=== PATIENT | male | born 1960 | race Caucasian/White ===

== ENCOUNTER 2016-10-23 08:17 | Day surgery (SDC) | payer OTHER ==
[2016-10-23] VITALS (20 sets, daily range): BP systolic 107–131; BP diastolic 56–77; PULSE 16–65; RESP 15–27; Ht 193 cm; Wt 141.0 kg
[~2016-10-23] VITALS: Ht 193 cm; Wt 141.0 kg
[~2016-10-23 08:17] MED LIST: BENADRYL PO; OMEP20CA9 PO; PROP10TA6 PO
[2016-10-23] MEDS ORDERED: PROP20TA4 PO (09:21)
[2016-10-23] MEDS ORDERED: FLUO10TA PO (09:22)
[2016-10-23] MEDS ORDERED: PANT20TA2 PO (09:22)
[2016-10-23] MEDS ORDERED: BEN50 PO (09:24)
[2016-10-23] MEDS ORDERED: FURO20TA3 PO (09:25)
[2016-10-23] MEDS ORDERED: SPIR50TA PO (09:25)
[2016-10-23] MEDS ORDERED: SOD CHLORIDE 0.9% 1,000 ML IV SCH (09:30)
[2016-10-23] MEDS ORDERED: LIDOCAINE 1% (MDV) 20 ML INJ ONE (11:08)
[2016-10-23] MEDS ORDERED: FENTAnyl 50 MCG/ML VIAL ONE (11:25)
[2016-10-23] MEDS ORDERED: MIDAZOLAM 1 MG/ML 2 ML INJ ONE (11:25)
--- NOTE | 2016-10-23 12:21 | RADRPT ---
PROCEDURE: CT guided bone marrow aspiration and left iliac bone biopsy. CLINICAL INDICATION: History of pancytopenia. TECHNIQUE: Informed consent was obtained. The procedure, risks, benefits, complications and alternatives were e xplained to the patient. Risks including bleeding and infection were explained. The patient understo od and was willing to proceed. A procedural pause was performed. The patient's name, date of , and procedure to be performed were verified. One or more of the following dose reduction techni ques were used: Automated exposure control, adjustment of the mA and/or kV according to patient size , use of iterative reconstruction technique. Using local anesthetic, sterile technique and CT guidance, an 11-gauge On Control bone biopsy needle was advanced into the left iliac bone via a posterior approach. Bone marrow aspiration was perform ed yielding approximately 10 ml. The bone biopsy needle was then advanced an additional 4 cm using the power drill device and tissue was obtained. Adequate tissue was obtained according to the patho logist present during the procedure. The needle was removed. A postprocedural scan was performed. A dressing was applied. The patient tolerated procedure well. COMPARISON: None. FINDINGS: Initial images demonstrate the tip of the needle at the posterior margin of the left iliac bone. Ramey bsequent images demonstrate the needle within the bone. Post biopsy images demonstrate no immediate complication. IMPRESSION: 1. Successful CT guided bone marrow aspiration and biopsy. RPTAT: QQ .Zach Silver MD, Date Time Electronically viewed and signed by .Zach Silver MD, on 10/23/2016 12:21 .R/
== END 2016-10-23 14:30 | disposition home or self-care (01) ==
LOC: SDS 08:17
PROVIDERS: ATTEND Internal Medicine Hematology & Oncology
DX: D61.818 Other pancytopenia (principal); J44.9 Chronic obstructive pulmonary disease, unspecified; F17.200 Nicotine dependence, unspecified, uncomplicated
CPT/HCPCS: 38221; 77012; 88305; 88313; J2250; J3010; Z7610

== ENCOUNTER 2018-11-28 22:49 | Inpatient (IN) | payer OTHER ==
[~2018-11-28] VITALS: Ht 193 cm; Wt 135.6 kg
[~2018-11-28 22:49] MED LIST changes: +BEN50 PO; -BENADRYL PO; +FLUO10TA PO; +FURO20TA3 PO; +FURO40TA4 PO; -OMEP20CA9 PO; +PANT20TA2 PO; +PANT40TA3 PO; -PROP10TA6 PO; +PROP20TA4 PO; +RIFA550T4 PO; +SPIR25TA PO; +SPIR50TA PO
[2018-11-28] MEDS ORDERED: SOD CHLORIDE 0.9% 500 ML IV STA (23:15)
[2018-11-29] MEDS ORDERED: KETOROLAC 15 MG INJ IV STA (00:18)
[2018-11-29] MEDS ORDERED: LACTULOSE 30ML CUP PO ONE (00:30)
[2018-11-29] MEDS ORDERED: FUROSEMIDE 40 MG INJ IV ONE (01:30)
[2018-11-29] MEDS ORDERED: DOCUSATE SODIUM 100 MG CAP PO PRN (01:30)
[2018-11-29] MEDS ORDERED: BISACODYL (EC) 5 MG TAB PO PRN (01:30)
[2018-11-29] MEDS ORDERED: HYDROmorphONE 0.5 MG/0.5 ML SYG IV PRN (01:30)
[2018-11-29] MEDS ORDERED: NACL 0.9% 3 ML SYG IV SCH (01:30)
[2018-11-29] MEDS ORDERED: ONDANSETRON 4 MG INJ IV PRN (01:30)
[2018-11-29] MEDS ORDERED: ACETAMINOPHEN 325 MG TAB PO PRN (01:30)
[2018-11-29] MEDS ORDERED: HYDROmorphONE 0.5 MG/0.5 ML SYG IV STA (01:45)
[2018-11-29 02:25] VITALS: Ht 193 cm; Wt 135.6 kg
[2018-11-29 03:06] VITALS: BP 127/63; PULSE 50; RESP 20
[2018-11-29 03:30] VITALS: PULSE 55
[2018-11-29] MEDS ORDERED: FUROSEMIDE 40 MG INJ IV SCH (06:00)
[2018-11-29] MEDS: PANTOPRAZOLE SODIUM 20 MG TABEC PO SCH ×2 (06:01→18:58)
[2018-11-29] MEDS ORDERED: IOHEXOL 14.3 MG(I)/ML (ADULT) BTL PO ONE ×2 (08:00→14:00)
[2018-11-29 08:48] VITALS: BP 110/55; PULSE 51; RESP 18
[2018-11-29] MEDS: FLUOXETINE 10 MG CAP PO SCH (08:52)
[2018-11-29] MEDS ORDERED: PROPRANOLOL 10 MG TAB PO SCH ×2 (09:00→21:00)
[2018-11-29] MEDS ORDERED: SPIRONOLACTONE 50 MG TAB PO SCH (09:00)
[2018-11-29] MEDS ORDERED: PROPRANOLOL 20 MG TAB PO SCH (09:00)
[2018-11-29] MEDS ORDERED: MAGNESIUM SULFATE 3 GM in DEXTROSE 5% 100 ML IVPB ONE (12:00)
[2018-11-29 14:00] VITALS: BP 142/69; PULSE 53; RESP 18
[2018-11-29] MEDS ORDERED: LACTULOSE 30ML CUP PO PRN (14:00)
[2018-11-29] MEDS ORDERED: morphine 2 MG INJ IV STA (18:50)
[2018-11-29 20:00] VITALS: BP 120/56; PULSE 59; RESP 19
[2018-11-29] MEDS: SPIRONOLACTONE 50 MG TAB PO SCH (20:54)
[2018-11-29] MEDS: RIFAXIMIN 550 MG TAB PO SCH (20:55)
[2018-11-30 02:00] VITALS: BP 116/57; PULSE 55; RESP 19
[2018-11-30] MEDS: PANTOPRAZOLE SODIUM 20 MG TABEC PO SCH ×2 (06:00→17:03)
[2018-11-30 08:09] VITALS: BP 108/54; PULSE 53; RESP 20
[2018-11-30] MEDS ORDERED: FUROSEMIDE 20 MG TAB PO SCH (09:00)
[2018-11-30] MEDS: FUROSEMIDE 40 MG INJ IV SCH (09:07)
[2018-11-30] MEDS: FLUOXETINE 10 MG CAP PO SCH (09:07)
[2018-11-30] MEDS: RIFAXIMIN 550 MG TAB PO SCH ×2 (09:07→20:45)
[2018-11-30] MEDS: SPIRONOLACTONE 50 MG TAB PO SCH ×2 (09:08→20:45)
[2018-11-30] MEDS: HYDROCODONE/APAP (5/325) TAB PO PRN ×2 (09:14→16:54)
[2018-11-30 12:39] VITALS: BP 131/62; PULSE 47; RESP 21
[2018-11-30] MEDS ORDERED: PROPOFOL 20 ML ONE ×2 (13:10→13:43)
[2018-11-30 14:20] VITALS: BP 129/65; PULSE 50; RESP 17
[2018-11-30] MEDS ORDERED: IOHEXOL 300MG/ML 150 ML BTL ONE (16:26)
[2018-11-30] MEDS ORDERED: SOD CHLORIDE 0.9% 100 ML ONE (16:26)
[2018-11-30] MEDS: DEXTROSE 5%-0.45% NACL 1,000 ML IV SCH (16:52)
[2018-11-30 20:12] VITALS: BP 117/56; PULSE 48; RESP 20
[2018-12-01] MEDS: HYDROCODONE/APAP (5/325) TAB PO PRN ×2 (02:47→09:30)
[2018-12-01 02:49] VITALS: BP 102/54; PULSE 53; RESP 20
[2018-12-01] MEDS: PANTOPRAZOLE SODIUM 20 MG TABEC PO SCH ×2 (05:38→17:35)
[2018-12-01] MEDS: DEXTROSE 5%-0.45% NACL 1,000 ML IV SCH (05:39)
[2018-12-01 08:00] VITALS: BP 126/60; PULSE 53; RESP 16
[2018-12-01] MEDS: SPIRONOLACTONE 50 MG TAB PO SCH (08:33)
[2018-12-01] MEDS: RIFAXIMIN 550 MG TAB PO SCH (08:34)
[2018-12-01] MEDS: FUROSEMIDE 40 MG INJ IV SCH (08:34)
[2018-12-01] MEDS: FLUOXETINE 10 MG CAP PO SCH (08:34)
[2018-12-01 14:00] VITALS: BP 122/63; PULSE 55; RESP 16
== END 2018-12-01 19:00 | disposition home or self-care (01) | DRG 809 ==
LOC: E/R 22:49 → PP2 11-29 00:51 → EDBEDREQ 11-29 01:21 → EDBEDREQSVC 11-29 01:21 → PP2 11-29 02:19
PROVIDERS: ADMIT Family Medicine; ATTEND Family Medicine
PROC: 30233R1 Transfusion of Nonautologous Platelets into Peripheral Vein, Percutaneous Approach (ICD-10-PCS; 2018-11-29)
PROC: 06L38CZ Occlusion of Esophageal Vein with Extraluminal Device, Via Natural or Artificial Opening Endoscopic (ICD-10-PCS; 2018-11-30)
PROC: 0DB68ZX Excision of Stomach, Via Natural or Artificial Opening Endoscopic, Diagnostic (ICD-10-PCS; principal; 2018-11-30 13:00)
DX: D61.818 Other pancytopenia (principal); I85.10 Secondary esophageal varices without bleeding; D69.59 Other secondary thrombocytopenia; K70.30 Alcoholic cirrhosis of liver without ascites; F10.10 Alcohol abuse, uncomplicated; Y90.0 Blood alcohol level of less than 20 mg/100 ml; B18.2 Chronic viral hepatitis C; R00.1 Bradycardia, unspecified; D73.1 Hypersplenism; F17.200 Nicotine dependence, unspecified, uncomplicated; K29.30 Chronic superficial gastritis without bleeding; I10 Essential (primary) hypertension; R73.03 Prediabetes
CPT/HCPCS: 36415; 36430; 71045; 74176; 74178; 76700; 80053; 80307; 81001; 82140; 82306; 82378; 82607; 82746; 83036; 83540; 83690; 83735; 83880; 84443; 84484; 84630; 85025; 85610; 85730; 86644; 86706; 86803; 86850; 86900; 86901; 86945; 87340; 87522; 88305; 88312; 93005; 93306; 93970; 96374; J1170; J1885; J1940; J2270; J3475; J7040; J7042; P9035; Q9967